=== PATIENT | female | born 1935 | race Hispanic/Latino ===

== ENCOUNTER 2018-05-19 17:04 | Emergency (ER) | payer MEDICARE, OTHER ==
--- NOTE | 2018-05-19 19:09 | XRay Report ---
FINAL REPORT EXAM: XR RIBS UNI W PA CHEST 3+V LT HISTORY: continued rib pain s/p fall with bruising TECHNIQUE: Frontal chest x-ray with three views left ribs Comparison: None FINDINGS: Normal heart size. Large hiatal hernia. Minimal blunting left lung base. Mildly displaced and angulated left 6th rib fracture. No pneumothorax. IMPRESSION: Limited rib series. Mildly angulated left lateral 6th rib fracture. Other fractures may be present but obscured. Large hiatal hernia. Mild atelectasis left lung base without definite pneumothorax. If there is a concern for a pneumothorax, recommend expiratory imaging.
[2018-05-19] MEDS ORDERED: TYLENOL #3 PO ONE (20:17)
--- NOTE | 2018-05-19 20:35 | Emergency Department Report ---
ED Fall HPI - General Chief Complaint: Extremity Injury, Upper Stated Complaint: LEFT FLANK PAIN FROM A FALL Time Seen by Provider: 05/19/18 20:16 Source: patient Mode of arrival: Ambulatory - History of Present Illness Initial Comments: 82-year-old female reports that she fell on Saturday and S sent knees who was sitting at the time, patient now having continued pain in the left rib area with bruising. Patient denies any shortness of breath but does report that the slightest movement causes pain to her left side. Dizziness a past medical history peripheral neuropathy without diabetes. As well as she has a past medical history of thyroid disease. She is on levothyroxine. Patient denies hitting her head no loss of consciousness no shortness of breathing or chest pain. She has no other concerns at this time. MD Complaint: fall -: days(s) (3) Fall From: standing When Fall Occurred: # days [employer] (3) Fall Witnessed: yes, by family Place Fall Occurred: home Loss of Consciousness: none Prolonged Down Time?: no Symptoms Prior to Fall: none Location: chest Severity: severe Severity scale (0 -10): 10 Quality: sharp, stabbing Context: tripped/slipped Associated Symptoms: denies: shortness of breath - Related Data Home Medications Medication Instructions Recorded Confirmed Last Taken Gabapentin 100 cap PO TID 08/27/14 08/31/14 08/30/14 Levothyroxine [Synthroid] 1 tab PO DAILY 08/27/14 08/31/14 08/30/14 Mv,Aries,Min/Iron/Folic Acid/Lut 1 tab PO DAILY 08/27/14 08/31/14 08/30/14 [Complete Multi Tablet] Nitrofurantoin Macrocrystal 1 cap PO DAILY 08/27/14 08/31/14 08/30/14 [Macrodantin] Previous Rx's Medication Instructions Recorded Last Taken Type Acetaminophen/Codeine [Tylenol 1 tab PO Q6H #20 tablet 05/19/18 Unknown Rx /Codeine # 3 tab] Allergies Allergy/AdvReac Type Severity Reaction Status Date / Time Penicillins Allergy Itching, Verified 08/27/14 14:21 rash ED Review of Systems ROS: Stated complaint: LEFT FLANK PAIN FROM A FALL Other details as noted in HPI ED Past Medical Hx - Past Medical History Hx Hypertension: No Hx Arthritis: Yes Hx Asthma: No Hx COPD: No Hx Tuberculosis: No Hx HIV: No Additional medical history: perpherial neuropathy,hypothyroidism,elevated cholesterol,anemia with transfusions - Surgical History Hx Cholecystectomy: Yes () Additional Surgical History: lesions in colon that cauterized - Social History Smoking Status: Never Smoker Substance Use Type: None - Medications Home Medications: Home Medications Medication Instructions Recorded Confirmed Last Taken Type Gabapentin 100 cap PO TID 08/27/14 08/31/14 08/30/14 History Levothyroxine [Synthroid] 1 tab PO DAILY 08/27/14 08/31/14 08/30/14 History Mv,Aries,Min/Iron/Folic Acid/Lut 1 tab PO DAILY 08/27/14 08/31/14 08/30/14 History [Complete Multi Tablet] Nitrofurantoin Macrocrystal 1 cap PO DAILY 08/27/14 08/31/14 08/30/14 History [Macrodantin] Acetaminophen/Codeine [Tylenol 1 tab PO Q6H #20 tablet 05/19/18 Unknown Rx /Codeine # 3 tab] ED Physical Exam - General Limitations: No Limitations General appearance: alert, in no apparent distress - Head Head exam: Present: atraumatic, normocephalic - Eye Eye exam: Present: normal appearance, other (wears glasses) - ENT ENT exam: Present: mucous membranes moist - Respiratory Respiratory exam: Present: normal lung sounds bilaterally. Absent: respiratory distress, wheezes, rales - Cardiovascular Cardiovascular Exam: Present: regular rate, normal rhythm. Absent: systolic murmur, diastolic murmur, rubs, gallop - GI/Abdominal GI/Abdominal exam: Present: soft, normal bowel sounds - Back Exam Back exam: Present: normal inspection - Neurological Exam Neurological exam: Present: alert, oriented X3 - Psychiatric Psychiatric exam: Present: normal affect, normal mood - Skin Skin exam: Present: warm, dry, intact, normal color. Absent: rash ED Course Vital Signs 05/19/18 17:18 Temperature 98.1 F Pulse Rate 83 Respiratory 18 Rate Blood Pressure 176/70 O2 Sat by Pulse 100 Oximetry ED Medical Decision Making - Radiology Data IMPRESSION: Limited rib series. Mildly angulated left lateral 6th rib fracture. Other fractures may be present but obscured. Large hiatal hernia. Mild atelectasis left lung base without definite pneumothorax. If there is a concern for a pneumothorax, recommend expiratory imaging. Transcribed By: GAYLE Dictated By: OCTAVIO WINSLOW Electronically Authenticated By: OCTAVIO WINSLOW Signed Date/Time: 05/19/181903 DD/ 03 TD/TT: 05/19/181903 FINDINGS: Heart and pericardium: Coronary artery calcifications. Thoracic aorta: Atherosclerotic calcifications. Pulmonary vasculature: Normal. Lymph nodes: No enlarged thoracic lymph nodes. Lungs: Lower lung atelectasis. Pleural space: No effusion, thickening, or pneumothorax. Musculoskeletal structures: Degenerative change of the spine. Nondisplaced left 6th rib fracture.. Upper abdominal structures: Large hiatal hernia.. IMPRESSION: Left 6th rib fracture. No pneumothorax. Lower lung atelectasis.. Transcribed By: DAREN Dictated By: JAZZ HUGHES MD Electronically Authenticated By: JAZZ HUGHES MD Signed Date/Time: 05/19/182120 DD/ 20 TD/TT: 05/19/182120 - Medical Decision Making She has been evaluated by this provider fast track. Chest x-ray has been ordered shows there is a fracture of the sixth left rib. CT ordered shows there is a fracture the sixth left rib no pneumothorax. Tylenol 3 was given to patient for pain management. Will discharge patient with Tylenol 3 and a respiratory toiletry. Critical care attestation.: If time is entered above; I have spent that time in minutes in the direct care of this critically ill patient, excluding procedure time. ED Disposition Clinical Impression: Fracture of six ribs of left side Qualifiers: Encounter type: initial encounter Fracture type: closed Qualified Code(s): S22.42XA - Multiple fractures of ribs, left side, initial encounter for closed fracture Fall Qualifiers: Encounter type: initial encounter Qualified Code(s): W19.XXXA - Unspecified fall, initial encounter Disposition: TO HOME OR SELFCARE Is pt being admited?: No Does the pt Need Aspirin: No Condition: Stable Instructions: Fall Prevention for Older Adults (ED), Fall Prevention (ED), Rib Fracture (ED) Additional Instructions: Please take pain medication as prescribed. Please use respiratory device to help keep the lungs open. Please do not operate heavy machinery please be cautious with taking the Tylenol 3 as this can cause falls as well. Please follow-up with your primary care provider in the next 3-5 days. Prescriptions: Acetaminophen/Codeine [Tylenol /Codeine # 3 tab] 1 tab PO Q6H #20 tablet Referrals: PRIMARY CARE, [Primary Care Provider] - 3-5 Days
--- NOTE | 2018-05-19 21:26 | Cat Scan Report ---
FINAL REPORT PROCEDURE: CT CHEST WO CON TECHNIQUE: Computerized axial tomography of the chest was performed without contrast material. HISTORY: fall with fractured rib rule out pneumothorax COMPARISON: Rib x-ray TECHNICAL QUALITY: Satisfactory. FINDINGS: Heart and pericardium: Coronary artery calcifications. Thoracic aorta: Atherosclerotic calcifications. Pulmonary vasculature: Normal. Lymph nodes: No enlarged thoracic lymph nodes. Lungs: Lower lung atelectasis. Pleural space: No effusion, thickening, or pneumothorax. Musculoskeletal structures: Degenerative change of the spine. Nondisplaced left 6th rib fracture.. Upper abdominal structures: Large hiatal hernia.. IMPRESSION: Left 6th rib fracture. No pneumothorax. Lower lung atelectasis..
[2018-05-19 23:10] VITALS: BP 147/57
== END 2018-05-19 23:09 | disposition home or self-care (01) ==
LOC: ED 17:04
DX: S22.42XA Multiple fractures of ribs, left side, initial encounter for closed fracture (principal); Z88.0 Allergy status to penicillin; Z90.49 Acquired absence of other specified parts of digestive tract; W01.198A Fall on same level from slipping, tripping and stumbling with subsequent striking against other object, initial encounter; Y93.89 Activity, other specified; Y92.89 Other specified places as the place of occurrence of the external cause; Y99.8 Other external cause status
CPT/HCPCS: 71250; 99284

== ENCOUNTER 2018-06-20 10:46 | Outpatient (CLI) | payer MEDICARE, OTHER ==
--- NOTE | 2018-06-20 13:17 | Mammography Report ---
BONE DENSITY STUDY: Postmenopausal osteoporosis screening. DEFINITIONS: BMD = Bone Mineral Density T-score = BMD related to mean peak bone mass of young adult (mean expressed in Standard Deviation) Z-score = Age matched BMD expressed in SD World Health Organization (WHO) Diagnostic Criteria Normal T-score > -1 SD Osteopenia T-score between -1 and -2.4 SD Osteoporosis T-score -2.5 SD or below FINDINGS: The weighted average BMD of lumbar spine L1-L4 is 0.824 with a T-score of -2.5. The weighted average BMD of the left hip is 0.962 with a T-score of 0.2. IMPRESSION: The patient's average T-score is diagnostic for osteoporosis and high relative risk for fracture. NOTE: BMD is not the only risk factor for fracture; also consider factors such as the patient's age, risk of falling, previous osteoporotic fracture, family history of osteoporotic fractures, current smoker, and low body weight. Fernandes's triangle is a region of interest in femur, predominantly of trabecular bone. It is not a true anatomic site, and [facility] does not recommend its use clinically.
== END 2018-06-20 10:47 | disposition home or self-care (01) ==
LOC: MAMMO 10:46
PROVIDERS: ATTEND Internal Medicine Geriatric Medicine
DX: M81.0 Age-related osteoporosis without current pathological fracture (principal); E78.00 Pure hypercholesterolemia, unspecified; M19.90 Unspecified osteoarthritis, unspecified site; E03.9 Hypothyroidism, unspecified; D64.9 Anemia, unspecified; Z88.0 Allergy status to penicillin; Z90.710 Acquired absence of both cervix and uterus
CPT/HCPCS: 77080